=== PATIENT | male | born 1940 | race American Indian/Alaskan Native ===

== ENCOUNTER 2017-02-13 12:25 | Emergency (ER) | payer OTHER, MEDICARE ==
[2017-02-13 12:37] VITALS: BP 130/79
[2017-02-13] MEDS ORDERED: MOTRIN PO ONE (17:53)
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
== END 2017-02-13 18:53 | disposition home or self-care (01) ==
LOC: ED 12:25
DX: S13.4XXA Sprain of ligaments of cervical spine, initial encounter (principal); S39.012A Strain of muscle, fascia and tendon of lower back, initial encounter; I10 Essential (primary) hypertension; V89.2XXA Person injured in unspecified motor-vehicle accident, traffic, initial encounter; Y93.9 Activity, unspecified; Y99.9 Unspecified external cause status; Y92.410 Unspecified street and highway as the place of occurrence of the external cause
CPT/HCPCS: 99282